=== PATIENT | male | born 1955 ===

== ENCOUNTER 2017-10-05 07:22 | Day surgery (SDC) | payer OTHER ==
[2017-10-05] MEDS ORDERED: Ringers Lactate 1,000 ML IV ONE (07:35)
[2017-10-05] MEDS ORDERED: SIMETHICONE 40 MG/ 0.6 ML ONE (07:45)
[2017-10-05] MEDS ORDERED: PROPOFOL 200 MG/20 ML VIAL IV ONE (08:24)
[2017-10-05] MEDS ORDERED: LIDOCAINE 1% MPF 5 ML VIAL ONE (08:27)
--- NOTE | 2017-10-05 10:12 | ENDO RPT ---
[address], [address] COLONOSCOPY PROCEDURE REPORT EXAM DATE: 10/05/2017 PATIENT NAME: Ankush Shaw MR #: [id number] BIRTHDATE: 1955 ATTENDING: Jarrod Hernandez MD STATUS: outpatient [employer] OPERATOR FOR METAL: Anahy Tang RN and Marry Castano RN INDICATIONS: The patient is a 62 yr old Male here for a colonoscopy due to colon cancer screening PROCEDURE PERFORMED: Colonoscopy with biopsy - cold polypectomy MEDICATIONS: Per Anesthesia. ESTIMATED BLOOD LOSS: None CONSENT: The patient understands the risks and benefits of the procedure and understands that these risks include, but are not limited to: sedation, allergic reaction, infection, perforation and/or bleeding. Alternative means of evaluation and treatment include, among others: physical exam, x-rays, and/or surgical intervention. The patient elects to proceed with this endoscopic procedure. DESCRIPTION OF PROCEDURE: During intra-op preparation period all mechanical medical equipment was checked for proper function. Hand hygiene and appropriate measures for infection prevention was taken. Procedure, possible complications, alternatives including, but not limited to possibility of bleeding, perforation, tear, infection, sepsis, need for surgery, need for blood transfusion, were explained to the patient. After the risks, benefits and alternatives of the procedure were thoroughly explained, Informed consent was verified, confirmed and timeout was successfully executed by the treatment team. The patient was placed in the left lateral position. A digital rectal exam was performed and revealed external hemorrhoids. After appropriate level of anesthesia, the scope was passed. The EC-[id number] ([id number]) and EC-[id number] ([id number]) endoscope was introduced through the anus and advanced to the cecum, which was identified by transillumination from the light source, the appendix, and the ileocecal valve. The quality of the prep was fair. The instrument was then slowly withdrawn as the colon was fully examined. Scope withdrawal time was . COLON FINDINGS: Mild diverticulosis was noted throughout the entire examined colon. A sessile polyp was found in the proximal ascending colon. Retroflexed views revealed no abnormalities. The scope was then completely withdrawn from the patient and the procedure terminated. ADVERSE EVENTS: There were no complications. IMPRESSIONS: 1. Mild diverticulosis was noted throughout the entire examined colon 2. Sessile polyp was found in the ascending colon 3. External hemorrhoids 4. Internal hemorrhoids RECOMMENDATIONS: 1. follow-up: office 1 week(s) 2. await biopsy results 3. no seeds in diet RECALL: for Colonoscopy, pending biopsy results. Jarrod Hernandez MD eSigned: Jarrod Hernandez MD 10/05/2017 10:08 AM cc: CPT CODES: ICD9 CODES: PATIENT NAME: Ankush Shaw MR#: [id number]
== END 2017-10-05 09:41 | disposition home health service (06) ==
LOC: OR 07:22
PROVIDERS: ATTEND Surgery
PROC: 0DBK8ZX Excision of Ascending Colon, Via Natural or Artificial Opening Endoscopic, Diagnostic (ICD-10-PCS; principal; 2017-10-05 08:46)
DX: Z12.11 Encounter for screening for malignant neoplasm of colon (principal); F17.200 Nicotine dependence, unspecified, uncomplicated; K63.5 Polyp of colon; K64.4 Residual hemorrhoidal skin tags; K57.30 Diverticulosis of large intestine without perforation or abscess without bleeding; K64.8 Other hemorrhoids
CPT/HCPCS: 88305